=== PATIENT | female | born 1990 | race African-American/Black ===

== ENCOUNTER 2018-04-15 14:20 | Emergency (ER) | payer SELFPAY ==
[~2018-04-15] VITALS: Ht 162.6 cm; Wt 100.0 kg
[2018-04-15 14:37] VITALS: BP 108/64
== END 2018-04-15 15:07 | disposition left against medical advice (07) ==
LOC: ER 14:20
DX: F10.129 Alcohol abuse with intoxication, unspecified (principal); R41.82 Altered mental status, unspecified
CPT/HCPCS: 99283